=== PATIENT | female | born 1975 | race Caucasian/White ===

== ENCOUNTER 2019-08-25 09:43 | Day surgery (SDC) | payer BC, OTHER ==
[~2019-08-25 09:43] MED LIST: BUPIVACAINE HCL 0.75% INJ/PF (7.5 MG/1 ML) 10 ML SDV OD PRN; CHONDR SU A NA/HYALUR INTRAOC KIT (SURGICARE) ONE; EPINEPHRINE INJ/PF 1 MG/1 ML AMPULE ONE; KETOROLAC TROMETHAMINE 0.45% 4 DROP/0.4 ML DROPERETTE OD PRN; LIDOCAINE 1% INJ-PF (10 MG/ML) 30 ML SDV ONE; LIDOCAINE 4% INJ/PF (40 MG/ML) 5 ML AMPUL OD PRN
[2019-08-25] MEDS: CYCLOPENTOLATE 0.2%/PHENYLEPHRINE 1% OPH SOLN 2 ML OD PRN ×3 (10:42→11:03)
[2019-08-25] MEDS: TROPICAMIDE 1% OPH SOLN 15 ML OD PRN ×3 (10:42→11:03)
[2019-08-25] MEDS: BESIFLOXACIN HCL 0.6% OPH SUSP 5 ML BOTTLE OD PRN ×4 (10:42→11:51)
[2019-08-25] MEDS: TETRACAINE HCL 0.5% OPH SOLN 4 ML OD PRN ×3 (10:43→11:24)
[2019-08-25] MEDS ORDERED: MIDAZOLAM 2 MG/2 ML INJ ONE (11:05)
[2019-08-25] MEDS ORDERED: FENTANYL CITRATE INJ/PF 100 MCG/2 ML AMPUL ONE (11:05)
[2019-08-25] MEDS: DORZOLAMIDE HCL 2%/TIMOLOL MALEAT 0.5% OPH SOLN 10 ML OD PRN ×2 (11:51)
[2019-08-25] MEDS ORDERED: TRYPAN BLUE 0.06 % OPH SOLN 0.5 ML DISP.SYRIN ONE (11:56)
--- NOTE | 2019-08-25 12:01 | Operative Report ---
Operative Report-[facility] Operative Report: DATE OF SURGERY: 08/25/2019 PREOPERATIVE DIAGNOSIS: MATURE CATARACT, RIGHT EYE. POSTOPERATIVE DIAGNOSIS: MATURE CATARACT, RIGHT EYE. PROCEDURE PERFORMED: COMPLEX CATARACT EXTRACTION WITH INTRAOCULAR LENSES, RIGHT EYE Intraocular Lens Model: MX 60 E 23.5 Total Phaco Time: 1.02 minutes SURGEON: SAMANTHA ROQUE MD ANESTHESIA: TOPICAL WITH MAC PLUS LIDOCAINE INDICATIONS FOR SURGERY: Difficulty seeing words on TV and reading small print Indications for complex: Mature cataract with poor red reflex requiring the use of dye PROCEDURE: The patient was brought to the operating room and placed on operative table. Following Tetracaine drops, topical anesthesia was administered. This consisted of instrument wipe pledgets soaked in a solution of 4% Xylocaine mixed with 0.75% of Marcaine in a 1:2 ratio. A 2 x 1 cm pledget was placed in the superior fornix. A 1 x 1 cm pledget was placed in inferior fornix. The eye was patched out for 5 minutes. The patch was removed. The eye was sterilely prepped and draped in the usual manner. Lid speculum was placed in the eye. The pledgets were removed. 4-0 black silk sutures were placed around the superior and inferior rectus muscle to be used as traction. A conjunctival peritomy was performed at the 10 o'clock position. Hemostasis was obtained with bipolar cautery. A posterior limbal groove was created using a crescent knife and dissected anteriorly towards the cornea. A sharp point blade was used to create a paracentesis site at the 2 o'clock position. Following the side-port incision, a syringe with air was injected into the eye, exchanging aqueous with air. Trypan blue dye was injected inferior to the air bubble. A 2.0 mm keratome was used to enter the anterior chamber through the groove. Viscoelastic was injected into the anterior chamber. An anterior capsulotomy was performed using Utrata forceps in the capsulorrhexis fashion. Hydrodissection and hydrodelineation were performed. Phacoemulsification was performed in the divide and conquer technique. Following this, the I/A unit was used to remove residual cortex. Viscoelastic was injected into the capsular bag. The intraocular lens was placed in the capsular bag. The I/A unit was used to remove residual viscoelastic. The wound was seen to be watertight under high and low pressure, and no sutures were placed. The intraocular lens was well centered. The pressure was adjusted in the eye to normal pressure. The 4-0 black silk sutures and lid speculum were removed. The eye was shielded after Besivance, prednsolone, and Cosopt drops were placed. The patient tolerated the procedure well and was sent to recovery room in good condition.
== END 2019-08-25 12:39 | disposition home or self-care (01) ==
LOC: SC 09:43
PROVIDERS: ATTEND Ophthalmology
DX: H25.89 Other age-related cataract (principal); H25.812 Combined forms of age-related cataract, left eye; H52.4 Presbyopia; Z79.899 Other long term (current) drug therapy; F17.210 Nicotine dependence, cigarettes, uncomplicated
CPT/HCPCS: 66982; V2632; J2250; J3490 ×6; J0171; J3010